=== PATIENT | female | born 1980 | race Caucasian/White ===

== ENCOUNTER 2017-10-07 11:07 | Emergency (ER) | payer MEDICAID, OTHER ==
[~2017-10-07] VITALS: Ht 170.2 cm; Wt 60.5 kg
[2017-10-07 11:15] VITALS: BP 107/69
== END 2017-10-07 13:19 | disposition home or self-care (01) ==
LOC: ED 13:15
DX: J20.9 Acute bronchitis, unspecified (principal); J00 Acute nasopharyngitis [common cold]; J02.9 Acute pharyngitis, unspecified
CPT/HCPCS: 71020; 87081; 87880; 99285

== ENCOUNTER 2017-11-25 11:27 | Emergency (ER) | payer MEDICAID, OTHER ==
[~2017-11-25] VITALS: Ht 152.4 cm; Wt 56.5 kg
[2017-11-25 11:43] VITALS: BP 107/65
[2017-11-25] MEDS ORDERED: DEXAMETHASONE 4 MG TABLET ONE (12:21)
[2017-11-25] MEDS ORDERED: DEXAMETHASONE 4 MG TABLET PO ONE (12:30)
== END 2017-11-25 12:32 | disposition home or self-care (01) ==
LOC: ED 12:31
DX: J02.0 Streptococcal pharyngitis (principal)
CPT/HCPCS: 99283

== ENCOUNTER 2018-12-04 12:45 | Emergency (ER) | payer OTHER ==
[~2018-12-04] VITALS: Ht 167.6 cm; Wt 61.0 kg
[2018-12-04 12:54] VITALS: BP 99/57
[2018-12-04 13:29] LABS: BASOPHILS # (AUTO) 0.03 x10^3/uL (0-0.1); BASOPHILS % (AUTO) 1 % (0-1); EOSINOPHILS # (AUTO) 0.06 x10^3/uL (0-0.4); EOSINOPHILS % (AUTO) 1 % (1-7); LYMPHOCYTES # (AUTO) 1.32 x10^3/uL (1-3.4); LYMPHOCYTES % (AUTO) 25 % (22-44); MD NO; MEAN CORPUSCULAR HEMOGLOBIN 27.7 pg (27.0-34.8); MEAN CORPUSCULAR HGB CONC 33.2 g/dL (32.4-35.8); MEAN CORPUSCULAR VOLUME 83.3 fL (80-100); MEAN PLATELET VOLUME 8.7 fL (7.4-10.4); MONOCYTES # (AUTO) 0.46 x10^3/uL (0.2-0.8); MONOCYTES % (AUTO) 9 % (2-9); NEUTROPHILS # (AUTO) 3.43 x10^3/uL (1.8-6.8); NEUTROPHILS % (AUTO) 65 % (42-75); PLATELET COUNT 303 x10^3/uL (130-400); RED BLOOD COUNT 4.29 x10^6/uL (3.82-5.3); RED CELL DISTRIBUTION WIDTH 13.2 % (9.6-15.2)
[2018-12-04] MEDS ORDERED: SODIUM CHLORIDE FLUSH 10ML SYR IVF ONE (13:30)
--- NOTE | 2018-12-04 13:36 | NUR ---
PT ARRIVES TO ED WITH C/O OF LOWER LEFT DENTAL PAIN X 2 WEEKS. PT DOES NOT HAVE INSURANCE AND UNABLE TO SEE A PCP OR DENTIST AT THIS TIME. PT REPROTS THAT SHE ALOS HAS RIGHT SIDED FACIAL PRESSURE AND NECK PAIN FROM A SINUS INFECTION SHE LIVES WITH. PT HAS SEEN AN ENT AND HAS BEEN TOLD SHE NEEDS SURGERY TO HAVE HER TONSILS TAKEN OUT. PT REPROTS NO TRUAMA. PT IS BREATHING WITHOUT LABOR AND ABLE TO TOLERATE SPEAKING IN FULL SENTANCES WITHOUT SOB.
[2018-12-04 13:41] LABS: ALBUMIN 3.2 g/dL (3.4-5.0); ANION GAP 4 mmol/L (5-15); CALCIUM 8.1 mg/dL (8.5-10.1); CHLORIDE 107 mmol/L (98-107); CREATININE 0.76 mg/dL (0.55-1.02)
[2018-12-04] MEDS ORDERED: OMNIPAQUE 350 MG/ML, 100ML BOTTLE ONE (14:14)
--- NOTE | 2018-12-04 14:53 | NUR ---
Patient/Caregiver given discharge instructions and they have confirmed that they understand the instructions. Patient ambulatory with steady gait.
== END 2018-12-04 14:56 | disposition home or self-care (01) ==
LOC: ED 14:50
DX: B00.1 Herpesviral vesicular dermatitis (principal); B34.9 Viral infection, unspecified
CPT/HCPCS: 36415; 70491; 80048; 82040; 85025; 99284; Q9967

== ENCOUNTER 2018-12-18 10:24 | Emergency (ER) | payer MEDICAID, OTHER ==
[~2018-12-18] VITALS: Ht 170.2 cm; Wt 60.0 kg
[2018-12-18 10:44] VITALS: BP 100/60
--- NOTE | 2018-12-18 10:51 | NUR ---
BROUGHT TO RM 8 FROM [facility]. NOTED TO HAVE A WOUND ON BOTTOM LIP. PT STATES SHE HAS BEEN HERE FOR SAME PREVIOUSLY AND THAT IT IS NOT HEALING
== END 2018-12-18 11:37 | disposition home or self-care (01) ==
LOC: ED 11:36
DX: B00.1 Herpesviral vesicular dermatitis (principal)
CPT/HCPCS: 99283

== ENCOUNTER 2019-03-10 15:02 | Emergency (ER) | payer MEDICAID, OTHER ==
[~2019-03-10] VITALS: Ht 167.6 cm; Wt 61.6 kg
--- NOTE | 2019-03-10 15:07 | NUR ---
Called from lobby for triage, no answer.
[2019-03-10 15:12] VITALS: BP 98/58
== END 2019-03-10 16:11 | disposition home or self-care (01) ==
LOC: ED 16:10
DX: J31.2 Chronic pharyngitis (principal); R59.1 Generalized enlarged lymph nodes
CPT/HCPCS: 99281

== ENCOUNTER 2020-05-09 18:44 | Emergency (ER) | payer MEDICAID ==
[~2020-05-09] VITALS: Ht 170.2 cm; Wt 63.7 kg
[2020-05-09 18:57] VITALS: BP 109/69
[2020-05-09] MEDS ORDERED: BUPIVACAINE 0.25% INFIL ONE (19:30)
[2020-05-09] MEDS ORDERED: LIDOCAINE 1%, 2ML INFIL ONE (19:30)
[2020-05-09] MEDS ORDERED: BUPIVACAINE 0.25% ONE (19:42)
[2020-05-09] MEDS ORDERED: LIDOCAINE-MPF 1%, 2ML ONE (19:42)
[2020-05-09] MEDS ORDERED: PENICILLIN VK 500MG TABLET ONE (20:14)
[2020-05-09] MEDS ORDERED: HYDROcodone/APAP 5/325 TABLET ONE (20:19)
[2020-05-09] MEDS ORDERED: PENICILLIN VK 500MG TABLET PO ONE (20:30)
[2020-05-09] MEDS ORDERED: HYDROcodone/APAP 5/325 TABLET PO ONE (21:00)
== END 2020-05-09 20:34 | disposition home or self-care (01) ==
LOC: ED 20:01
DX: K02.9 Dental caries, unspecified (principal); R51 Headache; R68.84 Jaw pain; R11.0 Nausea
CPT/HCPCS: 64400; 99284

== ENCOUNTER 2020-05-09 23:01 | Emergency (ER) | payer MEDICAID ==
[~2020-05-09] VITALS: Ht 170.2 cm; Wt 64.1 kg
[2020-05-09 23:11] VITALS: BP 134/80
--- NOTE | 2020-05-09 23:53 | NUR ---
PT LEFT LOBBY WITH OUT BEING SEEN
== END 2020-05-09 23:55 | disposition left against medical advice (07) ==
LOC: ED 23:31
DX: K04.7 Periapical abscess without sinus (principal); Z53.21 Procedure and treatment not carried out due to patient leaving prior to being seen by health care provider

== ENCOUNTER 2021-03-14 21:21 | Emergency (ER) | payer MEDICAID ==
[~2021-03-14] VITALS: Ht 167.6 cm; Wt 70.5 kg
--- NOTE | 2021-03-14 21:30 | NUR ---
NOT IN LOBBY WHEN CALLED
[2021-03-14 21:32] VITALS: BP 130/69
== END 2021-03-14 21:52 | disposition home or self-care (01) ==
LOC: ED 21:46
DX: O26.891 Other specified pregnancy related conditions, first trimester (principal); Z3A.01 Less than 8 weeks gestation of pregnancy
CPT/HCPCS: 99282